=== PATIENT | female | born 1965 | race Caucasian/White ===

== ENCOUNTER 2018-11-21 16:25 | Emergency (ER) | payer MEDICAID, OTHER ==
[~2018-11-21] VITALS: Ht 167.6 cm; Wt 94.0 kg
[~2018-11-21 16:25] MED LIST: AMLO2.5T2 PO; BACL20TA PO; HYDR25TA4 PO; IBUP-1984 PO; LISI40TA4 PO; LORA0.5T PO; MULT1TAB74 PO; OMEG500C3 PO; PER5325T PO; TRAM50TA2 PO
[2018-11-21] MEDS ORDERED: aspirin 325mg tablet PO ONE (16:50)
[2018-11-21 17:19] LABS: BASOPHILS % (AUTO) 0.6 % (0-1); EOSINOPHILS # (AUTO) 0.3 X10'3 (0-0.9); HEMATOCRIT 41.2 % (35.0-45.0); HEMOGLOBIN 13.8 g/dl (12.0-16.0); LYMPHOCYTES # (AUTO) 2.5 X10'3 (1.1-4.8); LYMPHOCYTES % (AUTO) 29.6 % (21-51); MEAN CORPUSCULAR HEMOGLOBIN 31.8 PG (27.0-31.0); MEAN CORPUSCULAR HGB CONC 33.5 % (33.0-36.5); MEAN CORPUSCULAR VOLUME 95.2 FL (78-98); MEAN PLATELET VOLUME 7.9 FL (7.4-10.4); MONOCYTES # (AUTO) 0.6 X10'3 (0-0.9); MONOCYTES % (AUTO) 7.4 % (2-12); NEUTROPHILS # (AUTO) 4.9 X10'3 (1.8-7.7); NEUTROPHILS % (AUTO) 59.4 % (42-75); PLATELET COUNT 298 X10'3 (140-440); RED BLOOD COUNT 4.33 X10'6 (4.20-5.60); RED CELL DISTRIBUTION WIDTH 13.9 % (11.5-14.5); WHITE BLOOD COUNT 8.3 X10'3 (4.5-11.0)
[2018-11-21 17:40] LABS: ALANINE AMINOTRANSFERASE 35 U/L (12-78); ALBUMIN 4.1 G/DL (3.4-5.0); ALBUMIN/GLOBULIN RATIO 1.1 (1.1-1.5); ALKALINE PHOSPHATASE 82 IU/L (46-116); ANION GAP 10 (8-16); ASPARTATE AMINO TRANSFERASE 23 U/L (10-37); BILIRUBIN,TOTAL 0.6 MG/DL (0.1-1.0); BLOOD UREA NITROGEN 17 MG/DL (7-18); BUN/CREATININE RATIO 26.6 (6.6-38.0); CALCIUM 9.4 MG/DL (8.5-10.1); CHLORIDE 102 MMOL/L (99-107); CREATININE 0.64 MG/DL (0.40-0.90); GLUCOSE 91 MG/DL (70-104); POTASSIUM 3.7 MMOL/L (3.5-5.1); SODIUM 137 MMOL/L (135-145); TOTAL CARBON DIOXIDE 25.3 MMOL/L (24-32); TOTAL PROTEIN 7.9 G/DL (6.4-8.2); eGFR > 90 ML/MIN
[2018-11-21 18:01] LABS: PARTIAL THROMBOPLASTIN TIME 29 SECONDS (22-32)
[2018-11-21 18:38] VITALS: BP 149/100
== END 2018-11-21 18:40 | disposition home or self-care (01) ==
LOC: ER 16:26
DX: R07.89 Other chest pain (principal); R06.02 Shortness of breath; R20.2 Paresthesia of skin; Z88.1 Allergy status to other antibiotic agents; Z88.5 Allergy status to narcotic agent; Z82.2 Family history of deafness and hearing loss; Z79.899 Other long term (current) drug therapy
CPT/HCPCS: 36415; 71045; 80053; 83880; 84484; 85025; 85610; 85730; 93005; 99284

== ENCOUNTER 2019-06-25 15:06 | Emergency (ER) | payer MEDICAID, OTHER ==
[~2019-06-25] VITALS: Ht 167.6 cm; Wt 94.5 kg
[2019-06-25 15:45] LABS: BASOPHILS # (AUTO) 0.1 X10'3 (0-0.2); BASOPHILS % (AUTO) 1.2 % (0-1); EOSINOPHILS # (AUTO) 0.4 X10'3 (0-0.9); EOSINOPHILS % (AUTO) 6.3 % (0-6); HEMATOCRIT 37.7 % (35.0-45.0); HEMOGLOBIN 12.7 g/dl (12.0-16.0); LYMPHOCYTES # (AUTO) 1.9 X10'3 (1.1-4.8); LYMPHOCYTES % (AUTO) 27.4 % (21-51); MEAN CORPUSCULAR HEMOGLOBIN 32.4 PG (27.0-31.0); MEAN CORPUSCULAR HGB CONC 33.6 g/dL (33.0-36.5); MEAN CORPUSCULAR VOLUME 96.4 FL (78-98); MEAN PLATELET VOLUME 7.7 FL (7.4-10.4); MONOCYTES # (AUTO) 0.6 X10'3 (0-0.9); MONOCYTES % (AUTO) 8.4 % (2-12); NEUTROPHILS # (AUTO) 3.9 X10'3 (1.8-7.7); NEUTROPHILS % (AUTO) 56.7 % (42-75); PLATELET COUNT 265 X10'3 (140-440); RED BLOOD COUNT 3.91 X10'6 (4.20-5.60); RED CELL DISTRIBUTION WIDTH 13.5 % (11.5-14.5); WHITE BLOOD COUNT 6.9 X10'3 (4.5-11.0)
[2019-06-25 15:57] LABS: ALANINE AMINOTRANSFERASE 40 U/L (12-78); ALBUMIN 3.6 G/DL (3.4-5.0); ALBUMIN/GLOBULIN RATIO 1.1 (1.1-1.5); ALKALINE PHOSPHATASE 74 IU/L (46-116); ANION GAP 6 (8-16); ASPARTATE AMINO TRANSFERASE 27 U/L (10-37); BILIRUBIN,TOTAL 0.8 MG/DL (0.1-1.0); BLOOD UREA NITROGEN 17 MG/DL (7-18); BUN/CREATININE RATIO 29.8 (6.6-38.0); CALCIUM 8.7 MG/DL (8.5-10.1); CHLORIDE 108 MMOL/L (99-107); CREATININE 0.57 MG/DL (0.40-0.90); GLUCOSE 89 MG/DL (70-104); POTASSIUM 3.3 MMOL/L (3.5-5.1); SODIUM 143 MMOL/L (135-145); TOTAL CARBON DIOXIDE 28.7 MMOL/L (24-32); eGFR > 90 ML/MIN
[2019-06-25 16:00] LABS: PARTIAL THROMBOPLASTIN TIME 29 SECONDS (22-32)
--- NOTE | 2019-06-25 18:19 | NUR ---
PRIMARY SPECIAL EDUCATOR COMPLETES TESTING.
[2019-06-25 18:22] VITALS: BP 139/93
[2019-06-25 18:45] LABS: D-DIMER 0.25 MG/L FEU (0-0.50)
[2019-06-25] MEDS ORDERED: ALBU8.5H8 IH (18:49)
== END 2019-06-25 19:00 | disposition home or self-care (01) ==
LOC: ER 15:07
DX: R06.02 Shortness of breath (principal); F41.9 Anxiety disorder, unspecified; R05 Cough; R22.41 Localized swelling, mass and lump, right lower limb; F10.99 Alcohol use, unspecified with unspecified alcohol-induced disorder; Z88.1 Allergy status to other antibiotic agents; Z88.5 Allergy status to narcotic agent; Z88.8 Allergy status to other drugs, medicaments and biological substances; Z88.2 Allergy status to sulfonamides; Z79.899 Other long term (current) drug therapy; Y90.9 Presence of alcohol in blood, level not specified
CPT/HCPCS: 36415; 71045; 80053; 83880; 84484; 85025; 85379; 85610; 85730; 93005; 93971; 99284

== ENCOUNTER 2023-05-12 18:09 | Inpatient (IN) | payer MEDICAID ==
[~2023-05-12] VITALS: Ht 167.6 cm; Wt 100.0 kg
[~2023-05-12 18:09] MED LIST changes: +ALBU8.5H17 IH; +LISI40TA13 PO; -LISI40TA4 PO; +MULT-620 PO; -MULT1TAB74 PO
[2023-05-12] MEDS ORDERED: diltiazem 5mg/ml 5ml inj. IV ONE ×3 (18:45→19:10)
[2023-05-12 18:49] LABS: BASOPHILS # (AUTO) 0.1 X10'3 (0-0.2); BASOPHILS % (AUTO) 0.6 % (0-1); EOSINOPHILS # (AUTO) 0.2 X10'3 (0-0.9); EOSINOPHILS % (AUTO) 1.8 % (0-6); HEMATOCRIT 39.8 % (35.0-45.0); LYMPHOCYTES # (AUTO) 3.5 X10'3 (1.1-4.8); LYMPHOCYTES % (AUTO) 29.2 % (21-51); MEAN CORPUSCULAR HEMOGLOBIN 31.8 PG (27.0-31.0); MEAN CORPUSCULAR HGB CONC 32.6 g/dL (33.0-36.5); MEAN CORPUSCULAR VOLUME 97.6 FL (78-98); MEAN PLATELET VOLUME 7.7 FL (7.4-10.4); MONOCYTES # (AUTO) 0.9 X10'3 (0-0.9); MONOCYTES % (AUTO) 7.2 % (2-12); NEUTROPHILS # (AUTO) 7.3 X10'3 (1.8-7.7); NEUTROPHILS % (AUTO) 61.2 % (42-75); PLATELET COUNT 322 X10'3 (140-440); RED BLOOD COUNT 4.07 X10'6 (4.20-5.60); RED CELL DISTRIBUTION WIDTH 14.4 % (11.5-14.5)
[2023-05-12] MEDS ORDERED: aspirin 81mg tab.chew PO ONE (18:50)
[2023-05-12 18:59] LABS: ALANINE AMINOTRANSFERASE 148 U/L (12-78); ALBUMIN 3.2 G/DL (3.4-5.0); ALKALINE PHOSPHATASE 75 IU/L (46-116); ANION GAP 12 (8-16); ASPARTATE AMINO TRANSFERASE 43 U/L (10-37); BILIRUBIN,TOTAL 0.5 MG/DL (0.1-1.0); BLOOD UREA NITROGEN 18 MG/DL (7-18); BUN/CREATININE RATIO 19.6 (10.0-20.0); CALCIUM 8.9 MG/DL (8.5-10.1); CHLORIDE 105 MMOL/L (99-107); CREATININE 0.92 MG/DL (0.40-0.90); GLUCOSE 111 MG/DL (70-104); POTASSIUM 3.6 MMOL/L (3.5-5.1); SODIUM 143 MMOL/L (135-145); TOTAL CARBON DIOXIDE 26.3 MMOL/L (24-32); TOTAL PROTEIN 6.4 G/DL (6.4-8.2); eGFR 63 ML/MIN
[2023-05-12 19:04] LABS: APTT 24 SECONDS (22-32); D-DIMER 0.33 MG/L FEU (0-0.50)
[2023-05-12 19:24] LABS: MAGNESIUM 1.7 MG/DL (1.5-2.4)
[2023-05-12 20:18] LABS: CLARITY,URINE SLIGHTLY CLOUDY (Clear); COLOR,URINE YELLOW (Yellow); GLUCOSE, URINE NEGATIVE (Neg); KETONES,URINE NEGATIVE (Neg); LEUKOCYTE ESTERASE ,URINE SMALL (Neg); NITRITES, URINE NEGATIVE (Neg); OCCULT BLOOD,URINE NEGATIVE (Neg); PH,URINE 5.5 (4.8-8.0); PROTEIN,URINE NEGATIVE (Neg); UROBILINOGEN,URINE 0.2 E.U/dL (0.2-1.0)
[2023-05-12 20:20] LABS: UA COLLECTION TYPE CLN CATCH MIDSTREAM
[2023-05-12] MEDS ORDERED: diltiazem-D5W 125mg/125ml 125 ML IV SCH (20:45)
[2023-05-12] MEDS ORDERED: diltiazem-NS 100mg/100ml 100 ML IV SCH ×3 (20:50→22:25)
[2023-05-12] MEDS ORDERED: furosemide 10 MG/1 ML 10ml inj IV ONE (20:55)
[2023-05-12] MEDS ORDERED: nitroGLYCERIN 1gm ointment UD TP ONE (20:55)
[2023-05-12 20:58] LABS: BACTERIA,URINE 1+ /HPF (Neg); MUCUS STRANDS MODERATE /LPF (Neg); RBC,URINE 0-2 /HPF (0-2); SQUAMOUS EPITHELIAL CELL,UR MANY /LPF (FEW)
[2023-05-12 20:59] LABS: HYALINE CASTS 0-3 /LPF (NEGATIVE)
[2023-05-12] MEDS ORDERED: temazepam 15mg capsule PO PRN (21:00)
[2023-05-12] MEDS ORDERED: ipratropium/albuterol 3ml nebule NEB PRN (21:30)
[2023-05-12] MEDS ORDERED: ondansetron 4mg rapidly disintigrating tab PO PRN (21:30)
[2023-05-12] MEDS ORDERED: bisacodyl 10mg suppository rectal RC PRN (21:30)
[2023-05-12] MEDS ORDERED: mag hydrox/Alum hydrox/simeth 30ml oral suspension PO PRN (21:30)
[2023-05-12] MEDS ORDERED: diphenhydrAMINE 25mg capsule PO PRN (21:30)
[2023-05-12] MEDS ORDERED: diphenhydrAMINE 50 mg/ml inj IV PRN (21:30)
[2023-05-12] MEDS ORDERED: metoclopramide 5 mg/ml inj IV PRN (21:30)
[2023-05-12] MEDS ORDERED: acetaminophen 650mg rectal suppository RC PRN (21:30)
[2023-05-12] MEDS ORDERED: magnesium hydroxide 30ml (MOM) UD suspension PO PRN (21:30)
[2023-05-12] MEDS ORDERED: ondansetron/PF 4mg/2ml inj IV PRN (21:30)
[2023-05-12] MEDS ORDERED: heparin 10,000 units/1 ML INJ IV ONE (21:40)
[2023-05-12 22:14] LABS: URINE AMPHETAMINE SCREEN POSITIVE (Neg); URINE BARBITUATE SCREEN NEGATIVE (Neg); URINE BENZODIAZEPINES SCREEN NEGATIVE (Neg); URINE CANNABINOID SCREEN NEGATIVE (Neg); URINE COCAINE SCREEN NEGATIVE (Neg); URINE METHADONE SCREEN NEGATIVE (Neg); URINE OPIATE SCREEN NEGATIVE (Neg); URINE PHENCYCLIDINE SCREEN NEGATIVE (Neg)
[2023-05-12 22:18] LABS: BASOPHILS # (AUTO) 0.1 X10'3 (0-0.2); BASOPHILS % (AUTO) 0.8 % (0-1); EOSINOPHILS # (AUTO) 0.3 X10'3 (0-0.9); EOSINOPHILS % (AUTO) 2.3 % (0-6); HEMOGLOBIN 12.7 g/dl (12.0-16.0); LYMPHOCYTES # (AUTO) 3.3 X10'3 (1.1-4.8); LYMPHOCYTES % (AUTO) 27.2 % (21-51); MEAN CORPUSCULAR HEMOGLOBIN 32.2 PG (27.0-31.0); MEAN CORPUSCULAR HGB CONC 33.3 g/dL (33.0-36.5); MEAN CORPUSCULAR VOLUME 96.6 FL (78-98); MONOCYTES # (AUTO) 0.8 X10'3 (0-0.9); MONOCYTES % (AUTO) 6.7 % (2-12); NEUTROPHILS # (AUTO) 7.6 X10'3 (1.8-7.7); PLATELET COUNT 308 X10'3 (140-440); RED BLOOD COUNT 3.94 X10'6 (4.20-5.60); RED CELL DISTRIBUTION WIDTH 14.7 % (11.5-14.5)
--- NOTE | 2023-05-12 22:21 | NUR ---
PER DR FAUSTO CHEW DRIP IS TO BE TITRATED TO HR IN 80S. PER VERBAL ORDER FROM DR LAMBERT DRIP INCREASED TO 15MG/HR
[2023-05-12 22:35] LABS: CREATINE KINASE 43 U/L (26-192); LIPASE 106 U/L (73-393); PHOSPHORUS 4.4 MG/DL (2.3-4.5)
[2023-05-12] MEDS: heparin 25,000 UNIT/250ml bag 250 ML IV PRN (22:50)
[2023-05-12 22:55] LABS: HEMOGLOBIN A1C 5.7 % (4.5-6.2)
[2023-05-12] MEDS ORDERED: LORazepam 2 mg/ml vial IV ONE (22:55)
[2023-05-12] MEDS ORDERED: haloperidol lactate 5mg/ml inj IM PRN (23:20)
[2023-05-12] MEDS ORDERED: dextrose 50%-water 50ml dispensing syringe IV PRN (23:20)
[2023-05-12] MEDS ORDERED: LORazepam 2 mg/ml vial IV PRN (23:20)
--- NOTE | 2023-05-12 23:30 | NUR ---
Pt arrived from ER via wheelchair. Able to ambulate independently
[2023-05-12 23:35] LABS: ETHANOL < 0.010 GM/DL (0.0-0.010)
[2023-05-12 23:45] VITALS: BP 127/76
[2023-05-13] VITALS (31 sets, daily range): BP systolic 94–152; BP diastolic 64–106
[2023-05-13] MEDS: acetaminophen 325mg tablet PO PRN (00:51)
[2023-05-13] MEDS ORDERED: diltiazem-NS 100mg/100ml 100 ML IV SCH ×2 (01:05→10:12)
[2023-05-13] MEDS: potassium cl 20mEq in 1/2 NS 1,000 ML IV SCH ×2 (01:23→10:48)
--- NOTE | 2023-05-13 02:23 | NUR ---
Called MD and advised pt BP dropped to 94/64 on Cardizem drip of 20mg/hr with Nirtro paste on., HR still in 110 to 120. MD advised to Hold Cardizem, give Bolus of LR and remove Nitro Paste.
[2023-05-13] MEDS ORDERED: ringers solution, lacted 1,000 ML IV ONE (02:30)
[2023-05-13] MEDS: LORazepam 2 mg/ml vial IV PRN ×2 (02:46→22:56)
--- NOTE | 2023-05-13 03:10 | NUR ---
Per Dr. Shipman orders, LR 1L Bolus started, 2mg Ativan administered IVP over 2 minutes, and Cardizem drip on hold.
[2023-05-13 06:13] LABS: BASOPHILS # (AUTO) 0.1 X10'3 (0-0.2); BASOPHILS % (AUTO) 0.9 % (0-1); EOSINOPHILS # (AUTO) 0.4 X10'3 (0-0.9); EOSINOPHILS % (AUTO) 3.6 % (0-6); HEMATOCRIT 36.6 % (35.0-45.0); HEMOGLOBIN 12.1 g/dl (12.0-16.0); LYMPHOCYTES # (AUTO) 3.2 X10'3 (1.1-4.8); LYMPHOCYTES % (AUTO) 29.3 % (21-51); MEAN CORPUSCULAR HEMOGLOBIN 32.1 PG (27.0-31.0); MEAN CORPUSCULAR HGB CONC 33.2 g/dL (33.0-36.5); MEAN CORPUSCULAR VOLUME 96.8 FL (78-98); MEAN PLATELET VOLUME 8.1 FL (7.4-10.4); MONOCYTES # (AUTO) 0.8 X10'3 (0-0.9); NEUTROPHILS # (AUTO) 6.5 X10'3 (1.8-7.7); NEUTROPHILS % (AUTO) 59.2 % (42-75); PLATELET COUNT 303 X10'3 (140-440); RED BLOOD COUNT 3.78 X10'6 (4.20-5.60); RED CELL DISTRIBUTION WIDTH 13.9 % (11.5-14.5); WHITE BLOOD COUNT 10.9 X10'3 (4.5-11.0)
[2023-05-13 06:16] LABS: APTT 37 SECONDS (22-32)
[2023-05-13 06:24] LABS: ALANINE AMINOTRANSFERASE 123 U/L (12-78); ALBUMIN 2.8 G/DL (3.4-5.0); ALKALINE PHOSPHATASE 64 IU/L (46-116); ANION GAP 9 (8-16); ASPARTATE AMINO TRANSFERASE 40 U/L (10-37); BILIRUBIN,TOTAL 0.8 MG/DL (0.1-1.0); BLOOD UREA NITROGEN 18 MG/DL (7-18); BUN/CREATININE RATIO 23.7 (10.0-20.0); CALCIUM 8.5 MG/DL (8.5-10.1); CHLORIDE 104 MMOL/L (99-107); CHOL/HDL RATIO 2.8 (0.00-4.99); CHOLESTEROL 139 MG/DL (0-200); CREATININE 0.76 MG/DL (0.40-0.90); GLUCOSE 95 MG/DL (70-104); HDL CHOLESTEROL 50 MG/DL (35-60); LDL CHOLESTEROL 75 MG/DL (50-100); POTASSIUM 3.5 MMOL/L (3.5-5.1); SODIUM 141 MMOL/L (135-145); TOTAL CARBON DIOXIDE 28.3 MMOL/L (24-32); TOTAL PROTEIN 5.7 G/DL (6.4-8.2); TRIGLYCERIDES 139 MG/DL (20-135); eGFR 79 ML/MIN
--- NOTE | 2023-05-13 06:26 | NUR ---
Problems reprioritized. Patient report given, questions answered & plan of care reviewed with Leonor.
[2023-05-13] MEDS: heparin 10,000 units/1 ML INJ IV PRN ×2 (07:10→19:58)
[2023-05-13] MEDS ORDERED: CefTRIAXone/D5W-Rocephin 1gm 50 ML IV SCH (08:00)
[2023-05-13] MEDS ORDERED: azithromycin/NS 500mg/250ml 250 ML IV SCH (08:00)
[2023-05-13] MEDS ORDERED: diltiazem 5mg/ml 5ml inj. IV STA (09:56)
[2023-05-13] MEDS ORDERED: diltiazem-D5W 125mg/125ml 125 ML IV SCH (10:00)
[2023-05-13] MEDS: pantoprazole 40mg Tablet.DR PO SCH (10:33)
[2023-05-13] MEDS: docusate sod 100mg capsule PO SCH ×2 (10:33→20:00)
[2023-05-13] MEDS: thiamine 100mg/ml 2ml inj. IV SCH ×3 (10:33→20:02)
[2023-05-13] MEDS: folic acid 1mg/0.2ml inj IV SCH (11:00)
[2023-05-13] MEDS ORDERED: potassium Cl 40MEQ/1/2NS 520ml 520 ML IV PRN (11:05)
[2023-05-13] MEDS ORDERED: potassium Cl 20 mEq SR tablet PO PRN ×2 (11:05)
[2023-05-13] MEDS ORDERED: magnesium 4gm in 100ml NS 100 ML IV PRN (11:05)
[2023-05-13] MEDS ORDERED: magnesium Cl slow-release 64mg tablet PO PRN (11:05)
[2023-05-13] MEDS ORDERED: magnesium 2GM in 50ml NS 50 ML IV PRN (11:05)
[2023-05-13] MEDS: dextrose 5%-normal saline 1,000 ML IV SCH (11:51)
[2023-05-13] MEDS: CefTRIAXone/D5W-Rocephin 1gm 50 ML IV SCH (13:22)
[2023-05-13] MEDS ORDERED: LOSA50TA64 PO (13:43)
[2023-05-13] MEDS ORDERED: ASPI-1094 PO (13:45)
[2023-05-13] MEDS: diltiazem-NS 100mg/100ml 100 ML IV SCH ×2 (15:15→22:37)
--- NOTE | 2023-05-13 18:16 | NUR ---
Problems reprioritized. Patient report given, questions answered & plan of care reviewed with Gabby FONTENOT. Family to home, Dinner finished, Pt back to sleep. Call light in reach. Hep gtt running @ 1200 units/hour, Cardizem running @ 7.5 mh/H. Addendum: 05/13/23 at 1818 by Leonor Ceja RN Amended: Links added.
[2023-05-13] MEDS: K and/or MAG REPLACEMENT MC SCH (20:00)
[2023-05-13] MEDS: heparin 25,000 UNIT/250ml bag 250 ML IV PRN (22:04)
[2023-05-14] VITALS (16 sets, daily range): BP systolic 118–149; BP diastolic 67–133
[2023-05-14] MEDS: dextrose 5%-normal saline 1,000 ML IV SCH ×2 (00:50→14:32)
[2023-05-14 04:58] LABS: BASOPHILS # (AUTO) 0.1 X10'3 (0-0.2); EOSINOPHILS # (AUTO) 0.5 X10'3 (0-0.9); EOSINOPHILS % (AUTO) 4.7 % (0-6); HEMATOCRIT 39.1 % (35.0-45.0); HEMOGLOBIN 12.8 g/dl (12.0-16.0); LYMPHOCYTES # (AUTO) 2.7 X10'3 (1.1-4.8); LYMPHOCYTES % (AUTO) 27.8 % (21-51); MEAN CORPUSCULAR HEMOGLOBIN 31.8 PG (27.0-31.0); MEAN CORPUSCULAR HGB CONC 32.7 g/dL (33.0-36.5); MEAN CORPUSCULAR VOLUME 97.4 FL (78-98); MONOCYTES # (AUTO) 0.7 X10'3 (0-0.9); MONOCYTES % (AUTO) 6.9 % (2-12); NEUTROPHILS # (AUTO) 5.8 X10'3 (1.8-7.7); NEUTROPHILS % (AUTO) 59.6 % (42-75); PLATELET COUNT 296 X10'3 (140-440); RED BLOOD COUNT 4.01 X10'6 (4.20-5.60); RED CELL DISTRIBUTION WIDTH 14.4 % (11.5-14.5); WHITE BLOOD COUNT 9.7 X10'3 (4.5-11.0)
[2023-05-14 05:16] LABS: ALANINE AMINOTRANSFERASE 101 U/L (12-78); ALBUMIN 2.8 G/DL (3.4-5.0); ALBUMIN/GLOBULIN RATIO 0.9 (1.1-1.5); ALKALINE PHOSPHATASE 64 IU/L (46-116); ANION GAP 9 (8-16); ASPARTATE AMINO TRANSFERASE 25 U/L (10-37); BILIRUBIN,TOTAL 0.8 MG/DL (0.1-1.0); BLOOD UREA NITROGEN 11 MG/DL (7-18); BUN/CREATININE RATIO 15.7 (10.0-20.0); CALCIUM 8.7 MG/DL (8.5-10.1); CHLORIDE 108 MMOL/L (99-107); GLUCOSE 109 MG/DL (70-104); PHOSPHORUS 3.7 MG/DL (2.3-4.5); POTASSIUM 3.8 MMOL/L (3.5-5.1); SODIUM 143 MMOL/L (135-145); TOTAL CARBON DIOXIDE 26.2 MMOL/L (24-32); TOTAL PROTEIN 5.8 G/DL (6.4-8.2); eGFR 87 ML/MIN
--- NOTE | 2023-05-14 06:39 | NUR ---
Patient in room U 3026. I have received report from CORIE DAWN, and had the opportunity to ask questions and assume patient care. PT RESTING COMFORTABLY, NO S/S OF DISTRESS. WILL CONTINUE TO MONITOR. Addendum: 05/14/23 at 0643 by Ana Jama RN REPORT RECEIVED FROM CORIE BETANCOURT AND JESSA STANLEY RN.
--- NOTE | 2023-05-14 06:46 | NUR ---
Problems reprioritized. Patient report given, questions answered & plan of care reviewed with Ana FONTENOT.
[2023-05-14] MEDS: K and/or MAG REPLACEMENT MC SCH ×2 (08:00→19:36)
[2023-05-14] MEDS: docusate sod 100mg capsule PO SCH (08:09)
[2023-05-14] MEDS: pantoprazole 40mg Tablet.DR PO SCH (08:09)
[2023-05-14] MEDS: thiamine 100mg/ml 2ml inj. IV SCH ×3 (08:09→21:00)
[2023-05-14] MEDS: CefTRIAXone/D5W-Rocephin 1gm 50 ML IV SCH (08:10)
[2023-05-14] MEDS ORDERED: carVEDilol 3.125mg tablet PO ONE (10:17)
[2023-05-14] MEDS: folic acid 1mg/0.2ml inj IV SCH (11:30)
[2023-05-14] MEDS: diltiazem-NS 100mg/100ml 100 ML IV SCH ×2 (11:30→22:00)
--- NOTE | 2023-05-14 13:17 | NUR ---
PAGE SENT PAGER ID: [phone] MESSAGE: [id number], BIJU GOYAL, PT IS WHEEZING AND THINKS SHE'S POSSIBLY HAVING AN ALLERGIC REACTION TO THE COREG. THANK YOU, CASTRO [phone]
--- NOTE | 2023-05-14 13:30 | NUR ---
PAGE SENT PAGER ID: [phone] MESSAGE: [id number], BIJU GOYAL, DID YOU MEAN FOR ME TO PLACE THE BENADRYL 25MG IV AND HOLD THE COREG ORDERS? THANK YOU. CASTRO [phone]
[2023-05-14] MEDS ORDERED: diphenhydrAMINE 50 mg/ml inj IM ONE (13:35)
[2023-05-14] MEDS: amiodarone 200mg tablet PO SCH ×2 (14:44→19:44)
[2023-05-14] MEDS: heparin 25,000 UNIT/250ml bag 250 ML IV PRN (16:34)
--- NOTE | 2023-05-14 18:03 | NUR ---
Problems reprioritized. Patient report given, questions answered & plan of care reviewed with CORIE PRADHAN.
[2023-05-14] MEDS ORDERED: carVEDilol 3.125mg tablet PO SCH (20:00)
[2023-05-14] MEDS: acetaminophen 325mg tablet PO PRN (23:19)
[2023-05-15] VITALS (20 sets, daily range): BP systolic 115–144; BP diastolic 74–120
[2023-05-15 03:05] LABS: ALANINE AMINOTRANSFERASE 83 U/L (12-78); ALBUMIN 2.7 G/DL (3.4-5.0); ALBUMIN/GLOBULIN RATIO 0.9 (1.1-1.5); ALKALINE PHOSPHATASE 61 IU/L (46-116); ANION GAP 7 (8-16); ASPARTATE AMINO TRANSFERASE 16 U/L (10-37); BILIRUBIN,TOTAL 0.6 MG/DL (0.1-1.0); BLOOD UREA NITROGEN 12 MG/DL (7-18); BUN/CREATININE RATIO 14.5 (10.0-20.0); CALCIUM 8.6 MG/DL (8.5-10.1); CHLORIDE 108 MMOL/L (99-107); CREATININE 0.83 MG/DL (0.40-0.90); GLUCOSE 116 MG/DL (70-104); MAGNESIUM 1.7 MG/DL (1.5-2.4); PHOSPHORUS 3.6 MG/DL (2.3-4.5); POTASSIUM 3.6 MMOL/L (3.5-5.1); SODIUM 142 MMOL/L (135-145); TOTAL CARBON DIOXIDE 27.1 MMOL/L (24-32); TOTAL PROTEIN 5.8 G/DL (6.4-8.2); eGFR 71 ML/MIN
[2023-05-15 05:36] LABS: BASOPHILS # (AUTO) 0.1 X10'3 (0-0.2); BASOPHILS % (AUTO) 0.7 % (0-1); EOSINOPHILS # (AUTO) 0.4 X10'3 (0-0.9); HEMATOCRIT 37.1 % (35.0-45.0); LYMPHOCYTES # (AUTO) 2.5 X10'3 (1.1-4.8); LYMPHOCYTES % (AUTO) 26.2 % (21-51); MEAN CORPUSCULAR HGB CONC 32.5 g/dL (33.0-36.5); MEAN CORPUSCULAR VOLUME 98.6 FL (78-98); MEAN PLATELET VOLUME 7.9 FL (7.4-10.4); MONOCYTES # (AUTO) 0.7 X10'3 (0-0.9); MONOCYTES % (AUTO) 7.8 % (2-12); NEUTROPHILS # (AUTO) 5.8 X10'3 (1.8-7.7); NEUTROPHILS % (AUTO) 61.3 % (42-75); PLATELET COUNT 278 X10'3 (140-440); RED BLOOD COUNT 3.76 X10'6 (4.20-5.60); RED CELL DISTRIBUTION WIDTH 14.5 % (11.5-14.5); WHITE BLOOD COUNT 9.5 X10'3 (4.5-11.0)
[2023-05-15] MEDS: dextrose 5%-normal saline 1,000 ML IV SCH (06:00)
--- NOTE | 2023-05-15 06:00 | NUR ---
Problems reprioritized. Patient report given, questions answered & plan of care reviewed with CASTRO. Addendum: 05/15/23 at 0651 by Devante Rosario RN Amended: Links added.
--- NOTE | 2023-05-15 07:13 | NUR ---
Patient in room PCU 3026. I have received report from CORIE PRADHAN, and had the opportunity to ask questions and assume patient care.
[2023-05-15] MEDS: K and/or MAG REPLACEMENT MC SCH ×2 (08:00→20:00)
[2023-05-15] MEDS: amiodarone 200mg tablet PO SCH ×2 (09:28→21:32)
[2023-05-15] MEDS: pantoprazole 40mg Tablet.DR PO SCH (09:28)
[2023-05-15] MEDS: thiamine 100mg/ml 2ml inj. IV SCH (09:29)
[2023-05-15] MEDS: folic acid 1mg/0.2ml inj IV SCH (09:31)
[2023-05-15] MEDS: albuterol 2.5 MG/3 ML nebule NEB PRN ×2 (09:34→16:17)
[2023-05-15] MEDS: CefTRIAXone/D5W-Rocephin 1gm 50 ML IV SCH (09:35)
[2023-05-15] MEDS: diltiazem-NS 100mg/100ml 100 ML IV SCH ×2 (10:08→21:50)
[2023-05-15] MEDS ORDERED: CETI10TA14 PO (10:59)
[2023-05-15] MEDS: heparin 25,000 UNIT/250ml bag 250 ML IV PRN (11:11)
[2023-05-15] MEDS ORDERED: metoclopramide 5 mg/ml inj IV PRN (11:15)
[2023-05-15] MEDS ORDERED: carvedilol 6.25mg tablet PO SCH (12:25)
[2023-05-15] MEDS: metoprolol tartrate 1mg/ml inj IV SCH ×4 (12:35→12:41)
--- NOTE | 2023-05-15 13:18 | NUR ---
2 DOSES OF METOPROLOL 5ML IV GIVEN. BEGINNING HR 139. HR AFTER SECOND DOSE 87. THIRD DOSE D/C'd BY LAURA SORTO.
[2023-05-15] MEDS: metoprolol tartrate 50mg tablet PO SCH ×2 (14:46→21:32)
--- NOTE | 2023-05-15 18:00 | NUR ---
Patient in room PCU 3026. I have received report from Kelly ARIZA and had the opportunity to ask questions and assume patient care.
--- NOTE | 2023-05-15 18:00 | NUR ---
Patient in room PCU 3026. I have received report from Ana FONTENOT and had the opportunity to ask questions and assume patient care.
--- NOTE | 2023-05-15 18:46 | NUR ---
Problems reprioritized. Patient report given, questions answered & plan of care reviewed with CORIE DIA.
--- NOTE | 2023-05-15 18:54 | NUR ---
Problems reprioritized. Patient report given, questions answered & plan of care reviewed with CORIE DIA.
[2023-05-15] MEDS: acetaminophen 325mg tablet PO PRN (21:47)
[2023-05-16] VITALS (9 sets, daily range): BP systolic 102–129; BP diastolic 74–100
--- NOTE | 2023-05-16 01:00 | NUR ---
PT IS C/O INSOMNIA DESPITE TAKING RESTORIL, CALLED DR. LAMBERT AND HE ORDERED 1 MG ATIVAN PO PRN.
[2023-05-16] MEDS ORDERED: LORazepam 1 MG tablet PO PRN (01:15)
--- NOTE | 2023-05-16 02:50 | NUR ---
PT HAS BEEN NORMOTENSIVE AND MAINTAINED HER HEART RATE AND BLOOD PRESSURE WITHIN PARAMETERS. DISCONNECTED THE CARDIZEM.
[2023-05-16 04:40] LABS: BASOPHILS # (AUTO) 0.1 X10'3 (0-0.2); EOSINOPHILS # (AUTO) 0.4 X10'3 (0-0.9); EOSINOPHILS % (AUTO) 3.9 % (0-6); HEMATOCRIT 40.4 % (35.0-45.0); HEMOGLOBIN 13.1 g/dl (12.0-16.0); LYMPHOCYTES % (AUTO) 27.1 % (21-51); MEAN CORPUSCULAR HEMOGLOBIN 31.6 PG (27.0-31.0); MEAN CORPUSCULAR HGB CONC 32.4 g/dL (33.0-36.5); MEAN CORPUSCULAR VOLUME 97.3 FL (78-98); MEAN PLATELET VOLUME 7.7 FL (7.4-10.4); MONOCYTES # (AUTO) 0.9 X10'3 (0-0.9); MONOCYTES % (AUTO) 7.9 % (2-12); NEUTROPHILS # (AUTO) 6.7 X10'3 (1.8-7.7); NEUTROPHILS % (AUTO) 60.1 % (42-75); PLATELET COUNT 304 X10'3 (140-440); RED BLOOD COUNT 4.15 X10'6 (4.20-5.60); RED CELL DISTRIBUTION WIDTH 14.8 % (11.5-14.5); WHITE BLOOD COUNT 11.1 X10'3 (4.5-11.0)
[2023-05-16 04:52] LABS: ALANINE AMINOTRANSFERASE 65 U/L (12-78); ALBUMIN/GLOBULIN RATIO 0.9 (1.1-1.5); ALKALINE PHOSPHATASE 59 IU/L (46-116); ANION GAP 7 (8-16); ASPARTATE AMINO TRANSFERASE 19 U/L (10-37); BILIRUBIN,TOTAL 0.4 MG/DL (0.1-1.0); BLOOD UREA NITROGEN 16 MG/DL (7-18); BUN/CREATININE RATIO 19.8 (10.0-20.0); CALCIUM 9.4 MG/DL (8.5-10.1); CHLORIDE 109 MMOL/L (99-107); CREATININE 0.81 MG/DL (0.40-0.90); GLUCOSE 97 MG/DL (70-104); MAGNESIUM 1.7 MG/DL (1.5-2.4); PHOSPHORUS 3.9 MG/DL (2.3-4.5); SODIUM 143 MMOL/L (135-145); TOTAL CARBON DIOXIDE 26.8 MMOL/L (24-32); TOTAL PROTEIN 6.2 G/DL (6.4-8.2); eGFR 73 ML/MIN
--- NOTE | 2023-05-16 06:30 | NUR ---
Problems reprioritized. Patient report given, questions answered & plan of care reviewed with Ana FONTENOT.
--- NOTE | 2023-05-16 06:59 | NUR ---
Patient in room PCU 3026. I have received report from CORIE DIA, and had the opportunity to ask questions and assume patient care.
[2023-05-16] MEDS ORDERED: cetirizine 10mg tablet PO SCH (08:00)
[2023-05-16] MEDS ORDERED: losartan 50mg tablet PO SCH (08:00)
[2023-05-16] MEDS: CefTRIAXone/D5W-Rocephin 1gm 50 ML IV SCH (08:00)
[2023-05-16] MEDS: K and/or MAG REPLACEMENT MC SCH (08:00)
[2023-05-16] MEDS ORDERED: aspirin 325mg tablet, delayed-release (Ecotrin) PO SCH (08:00)
[2023-05-16] MEDS: amiodarone 200mg tablet PO SCH (08:13)
[2023-05-16] MEDS: pantoprazole 40mg Tablet.DR PO SCH (08:14)
[2023-05-16] MEDS: metoprolol tartrate 50mg tablet PO SCH (08:15)
[2023-05-16] MEDS ORDERED: apixaban 5mg tablet PO SCH (08:20)
--- NOTE | 2023-05-16 08:29 | NUR ---
RECEIVED VERBAL ORDER FROM LAURA SORTO THAT HEPARIN WAS DC'd.
[2023-05-16] MEDS ORDERED: aspirin 81mg tab.chew PO SCH (08:30)
[2023-05-16] MEDS ORDERED: metoprolol tartrate 25mg tablet PO ONE (09:35)
[2023-05-16 10:07] LABS: HBSAG SCREEN Negative (Negative); HEP A AB, IGM Negative (Negative); HEPATITIS C VIRUS ANTIBODY Non Reactive (Non Reactive)
[2023-05-16] MEDS ORDERED: ASPI81TA53 PO (10:48)
[2023-05-16] MEDS ORDERED: LOP25T PO (10:48)
[2023-05-16] MEDS ORDERED: APIX5TAB3 PO (11:16)
[2023-05-16] MEDS ORDERED: AMI200T PO (11:16)
[2023-05-16] MEDS ORDERED: ALBU18HF2 INH (11:16)
--- NOTE | 2023-05-16 11:49 | NUR ---
PT STABLE FOR DC PER MD. DISCHARGE AND FOLLOW UP INSTRUCTIONS REVIEWED WITH PT. APPROPRIATE PAPERWORK SIGNED. BELONGINGS RETURNED TO PT. PRESCRIPTIONS TRANSMITTED TO [facility]. TELE BOX REMOVED. PIVS REMOVED WITH TIP INTACT. PT TAKEN TO PRIVATE VEHICLE BY HOSPITAL STAFF. PT DISCHARGED TO HOME.
[2023-05-16] MEDS ORDERED: metoprolol tartrate 25mg tablet PO SCH (20:00)
[2023-05-17] MEDS ORDERED: thiamine 100mg tablet PO SCH ×2 (08:00)
[2023-05-17] MEDS ORDERED: folic acid 1mg tablet PO SCH (08:00)
== END 2023-05-16 11:45 | disposition home health service (06) | DRG 194 ==
LOC: ER 18:10 → ED HOLD 21:37 → PCU 3S 23:30
PROVIDERS: ADMIT Family Medicine; ATTEND Family Medicine
DX: I13.0 Hypertensive heart and chronic kidney disease with heart failure and stage 1 through stage 4 chronic kidney disease, or unspecified chronic kidney disease (principal); N17.9 Acute kidney failure, unspecified; I48.91 Unspecified atrial fibrillation; I50.43 Acute on chronic combined systolic (congestive) and diastolic (congestive) heart failure; F15.129 Other stimulant abuse with intoxication, unspecified; G89.4 Chronic pain syndrome; R74.01 Elevation of levels of liver transaminase levels; F10.20 Alcohol dependence, uncomplicated; Y90.9 Presence of alcohol in blood, level not specified; F41.9 Anxiety disorder, unspecified; Z96.611 Presence of right artificial shoulder joint; Z96.651 Presence of right artificial knee joint; J45.909 Unspecified asthma, uncomplicated; N18.9 Chronic kidney disease, unspecified; Z88.5 Allergy status to narcotic agent; Z79.899 Other long term (current) drug therapy; Z88.2 Allergy status to sulfonamides; Z88.8 Allergy status to other drugs, medicaments and biological substances; Z82.49 Family history of ischemic heart disease and other diseases of the circulatory system; Z83.3 Family history of diabetes mellitus
CPT/HCPCS: 36415; 71045; 71250; 80053; 80061; 80074; 80305; 80320; 81001; 82550; 83036; 83605; 83690; 83735; 83880; 84100; 84443; 84484; 85025; 85379; 85610; 85730; 87040; 87081; 93005; 93306; 94640; 94760; 99285; A6258; G0378; J0696; J1200; J1644; J1940; J2060; J3411; J3480; J3490; J7040; J7042; J7120; Q0163

== ENCOUNTER 2023-12-18 09:09 | Day surgery (SDC) | payer MEDICAID ==
[2023-12-13 12:14] LABS: BASOPHILS # (AUTO) 0.1 X10'3 (0-0.2); BASOPHILS % (AUTO) 0.9 % (0-1); EOSINOPHILS # (AUTO) 0.3 X10'3 (0-0.9); EOSINOPHILS % (AUTO) 4.8 % (0-6); LYMPHOCYTES # (AUTO) 1.8 X10'3 (1.1-4.8); LYMPHOCYTES % (AUTO) 25.1 % (21-51); MEAN CORPUSCULAR HEMOGLOBIN 31.3 PG (27.0-31.0); MEAN CORPUSCULAR VOLUME 94.8 FL (78-98); MEAN PLATELET VOLUME 7.3 FL (7.4-10.4); MONOCYTES # (AUTO) 0.6 X10'3 (0-0.9); MONOCYTES % (AUTO) 8.3 % (2-12); NEUTROPHILS # (AUTO) 4.3 X10'3 (1.8-7.7); NEUTROPHILS % (AUTO) 60.9 % (42-75); PRE OP HEMATOCRIT 44.7 % (35.0-45.0); PRE OP HEMOGLOBIN 14.7 g/dL (12.0-16.0); PRE OP PLATELET COUNT 314 X10'3 (140-440); RED BLOOD COUNT 4.71 X10'6 (4.20-5.60); RED CELL DISTRIBUTION WIDTH 13.1 % (11.5-14.5)
[2023-12-13 13:07] LABS: ALBUMIN 3.6 G/DL (3.4-5.0); ALBUMIN/GLOBULIN RATIO 0.9 (1.1-1.5); ALKALINE PHOSPHATASE 72 IU/L (46-116); BLOOD UREA NITROGEN 14 MG/DL (7-18); BUN/CREATININE RATIO 21.5 (10.0-20.0); CALCIUM 9.1 MG/DL (8.5-10.1); CHLORIDE 106 MMOL/L (99-107); CREATININE 0.65 MG/DL (0.40-0.90); PRE OP ALT 30 U/L (30-65); PRE OP ANION GAP 11 (8-16); PRE OP AST 21 U/L (10-37); PRE OP BILIRUB, TOTAL 0.5 MG/DL (0.0-1.0); PRE OP GLUCOSE 90 MG/DL (70-104); PRE OP POTASSIUM 3.9 MMOL/L (3.4-5.1); PRE OP SODIUM 142 MMOL/L (135-145); TOTAL CARBON DIOXIDE 25.1 MMOL/L (24-32); TOTAL PROTEIN 7.6 G/DL (6.4-8.2); eGFR > 90 ML/MIN
[~2023-12-18] VITALS: Ht 167.6 cm; Wt 96.5 kg
[2023-12-18] MEDS: cefazolin 2gm/D5W 100mL 100 ML IV ONE (05:30)
[~2023-12-18 09:09] MED LIST changes: +ACET1CAP12 PO; -ALBU8.5H17 IH; -AMLO2.5T2 PO; -BACL20TA PO; +CEPH500C2 PO; +DIPH25CA83 PO; -HYDR25TA4 PO; -IBUP-1984 PO; +IBUP-1986 PO; +LACT100C2 PO; -LISI40TA13 PO; -LORA0.5T PO; +LOSA50TA64 PO; +MAG PO; -MULT-620 PO; -OMEG500C3 PO; -PER5325T PO; +POTASSIUM PO; -TRAM50TA2 PO
[2023-12-18 09:40] VITALS: BP 122/94; PULSE 88; RESP 16; TEMP 96.5; TEMP 97.5; O2SAT 97
[2023-12-18] MEDS: ringers solution, lacted 1,000 ML IV SCH (10:15)
[2023-12-18] MEDS: famotidine 20mg tablet PO ONE (10:15)
[2023-12-18] MEDS ORDERED: LIDOcaine 1% (10mg/ml)w/preservative inj. 20ml MDV ONE (12:35)
[2023-12-18] MEDS ORDERED: MIDAZolam 1 MG/ML 5ML VIAL ONE (13:16)
[2023-12-18] MEDS ORDERED: fentaNYL/PF 50MCG/1 ML 2ML syringe ONE (13:16)
[2023-12-18] MEDS: LIDOcaine 1% 30ml preserv. free vial ONE (13:36)
[2023-12-18] MEDS: BUPIVAcaine/PF 2.5mg/ml (0.25%) 10ml vial ONE (13:37)
[2023-12-18] MEDS ORDERED: propofol inj 20 ML IV ONE (13:44)
[2023-12-18] MEDS ORDERED: LIDOcaine 1%/PF 5ML 10 MG/ML VIAL ONE (13:44)
[2023-12-18 13:49] VITALS: BP 152/86; PULSE 82; RESP 16; O2SAT 100
[2023-12-18 14:00] VITALS: BP 143/89; PULSE 73; RESP 17; O2SAT 98
[2023-12-18 14:10] VITALS: BP 150/88; PULSE 74; RESP 16; O2SAT 97
[2023-12-18 14:20] VITALS: BP 153/82; PULSE 73; RESP 14; O2SAT 96
[2023-12-18 14:30] VITALS: BP 149/80; PULSE 73; RESP 15; O2SAT 97
== END 2023-12-18 14:39 | disposition home or self-care (01) ==
LOC: PAS 09:09
PROVIDERS: ATTEND Orthopaedic Surgery Hand Surgery
DX: G56.03 Carpal tunnel syndrome, bilateral upper limbs (principal); I10 Essential (primary) hypertension; J45.909 Unspecified asthma, uncomplicated; E66.9 Obesity, unspecified; I20.9 Angina pectoris, unspecified; I48.91 Unspecified atrial fibrillation; Z79.1 Long term (current) use of non-steroidal anti-inflammatories (NSAID); Z79.2 Long term (current) use of antibiotics; Z79.899 Other long term (current) drug therapy; Z90.49 Acquired absence of other specified parts of digestive tract; Z90.710 Acquired absence of both cervix and uterus; Z96.651 Presence of right artificial knee joint; Z98.891 History of uterine scar from previous surgery; Z98.890 Other specified postprocedural states; Z68.34 Body mass index [BMI] 34.0-34.9, adult; Z88.1 Allergy status to other antibiotic agents; Z88.2 Allergy status to sulfonamides; Z88.5 Allergy status to narcotic agent; Z88.8 Allergy status to other drugs, medicaments and biological substances; Z82.49 Family history of ischemic heart disease and other diseases of the circulatory system; Z82.5 Family history of asthma and other chronic lower respiratory diseases
CPT/HCPCS: 29848; 36415; 80053; 82948; 85025; 93005; J0690; J2250; J2704; J3010; J3490; J7030; J7120; Z7506; Z7512; A4215; A6449; A7000